=== PATIENT | female | born 1990 | race American Indian/Alaskan Native ===

== ENCOUNTER 2019-05-01 13:22 | Emergency (ER) | payer SELFPAY ==
--- NOTE | 2019-05-01 13:30 | Emergency Department Report ---
Blank Doc - Documentation Documentation: 28-year-old female that presents with abd pain, headache, and dizziness. This initial assessment/diagnostic orders/clinical plan/treatment(s) is/are subject to change based on patient's health status, clinical progression and re- assessment by fellow clinical providers in the ED. Further treatment and workup at subsequent clinical providers discretion. Patient/guardians urged not to elope from the ED as their condition may be serious if not clinically assessed and managed. Initial orders include: 1- Patient sent to [facility] for further evaluation and treatment 2- labs 3- UA
[2019-05-01 14:10] LABS: Basophils % (Auto) 0.4 % (0.0-1.8); Eosinophils # (Auto) 0.1 K/mm3 (0.0-0.4); Eosinophils % (Auto) 1.1 % (0.0-4.3); Hematocrit 38.2 % (30.3-42.9); Hemoglobin 12.6 gm/dl (10.1-14.3); Lymphocytes # (Auto) 2.1 K/mm3 (1.2-5.4); Lymphocytes % (Auto) 35.3 % (13.4-35.0); Mean Corpuscular HGB Conc 33 % (30-34); Mean Corpuscular Volume 87 fl (79-97); Monocytes # (Auto) 0.4 K/mm3 (0.0-0.8); Monocytes % (Auto) 7.4 % (0.0-7.3); Platelet Count 334 K/mm3 (140-440); Red Blood Count 4.39 M/mm3 (3.65-5.03); Red Cell Distribution Width 14.3 % (13.2-15.2)
[2019-05-01 14:14] LABS: Bilirubin,Urine NEG (Negative); Blood,Urine LG (Negative); Color,Urine Yellow (Yellow); Protein,Urine <15 mg/dL mg/dL (Negative); Urobilinogen,Urine < 2.0 mg/dL (<2.0)
[2019-05-01 14:20] LABS: Alanine Aminotransferase 12 units/L (7-56); Albumin 4.2 g/dL (3.9-5); BUN/Creatinine Ratio 12; Blood Urea Nitrogen 12 mg/dL (7-17); Calcium 9.2 mg/dL (8.4-10.2); Hemolysis Index 8
--- NOTE | 2019-05-01 16:13 | Emergency Department Report ---
ED Abdominal Pain HPI - General Chief Complaint: Abdominal Pain Stated Complaint: SOB/ABD PAIN/HEADACHE/DIZZY Time Seen by Provider: 05/01/19 13:29 Source: patient Mode of arrival: Ambulatory Limitations: No Limitations - History of Present Illness Initial Comments: Patient complained of pelvic pain which has been ongoing for the past 2 days. She also said she is having vaginal spotting and test Was Positive. -: days(s) (two) Radiation: none Migration to: no migration Severity: mild Severity scale (0 -10): 3 Quality: aching, dull Consistency: constant Improves With: nothing Worsens With: nothing Associated Symptoms: other (Headache) - Related Data LMP (females 10-50): Previous Rx's Medication Instructions Recorded Last Taken Type Doxycycline Hyclate [Doxycycline 100 mg PO Q12HR #28 tab 05/01/19 Unknown Rx Hyclate TAB] Ibuprofen [Motrin] 800 mg PO Q8HR PRN #25 tablet 05/01/19 Unknown Rx Ondansetron [Zofran Odt] 4 mg PO Q8HR PRN #25 tab.rapdis 05/01/19 Unknown Rx metroNIDAZOLE [Flagyl] 500 mg PO Q12HR #28 tab 05/01/19 Unknown Rx Allergies Allergy/AdvReac Type Severity Reaction Status Date / Time No Known Allergies Allergy Unverified 05/01/19 13:23 ED Review of Systems ROS: Stated complaint: SOB/ABD PAIN/HEADACHE/DIZZY Other details as noted in HPI Comment: All other systems reviewed and negative Constitutional: denies: chills, fever Eyes: denies: eye pain, eye discharge, vision change ENT: denies: ear pain, throat pain Respiratory: denies: cough, shortness of breath, wheezing Cardiovascular: denies: chest pain, palpitations Endocrine: no symptoms reported Gastrointestinal: abdominal pain, other (Lower Abdominal/Pelvic Pain.). denies: nausea, diarrhea Genitourinary: denies: urgency, dysuria, discharge Musculoskeletal: denies: back pain, joint swelling, arthralgia Skin: denies: rash, lesions Neurological: denies: headache, weakness, paresthesias Psychiatric: denies: anxiety, depression Hematological/Lymphatic: denies: easy bleeding, easy bruising ED Past Medical Hx - Past Medical History Previous Medical History?: Yes Hx Sickle Cell Disease: (trait) - Surgical History Past Surgical History?: No - Social History Smoking Status: Never Smoker Substance Use Type: Marijuana - Medications Home Medications: Home Medications Medication Instructions Recorded Confirmed Last Taken Type Doxycycline Hyclate [Doxycycline 100 mg PO Q12HR #28 tab 05/01/19 Unknown Rx Hyclate TAB] Ibuprofen [Motrin] 800 mg PO Q8HR PRN #25 tablet 05/01/19 Unknown Rx Ondansetron [Zofran Odt] 4 mg PO Q8HR PRN #25 tab.rapdis 05/01/19 Unknown Rx metroNIDAZOLE [Flagyl] 500 mg PO Q12HR #28 tab 05/01/19 Unknown Rx ED Physical Exam - General Limitations: No Limitations General appearance: alert, in no apparent distress - Head Head exam: Present: atraumatic, normocephalic - Eye Eye exam: Present: normal appearance, PERRL Pupils: Present: normal accommodation - ENT ENT exam: Present: normal exam, normal orophraynx, mucous membranes moist - Neck Neck exam: Present: normal inspection - Respiratory Respiratory exam: Present: normal lung sounds bilaterally. Absent: respiratory distress - Cardiovascular Cardiovascular Exam: Present: regular rate, normal rhythm. Absent: systolic murmur, diastolic murmur, rubs, gallop - GI/Abdominal GI/Abdominal exam: Present: soft, normal bowel sounds - Rectal Rectal exam: Present: deferred - External exam: Present: normal external exam. Absent: erythema, swelling, lesions, lacerations, bleeding Speculum exam: Present: normal speculum exam, vaginal discharge. Absent: vaginal bleeding, foreign body, tissue, laceration Bi-manual exam: Present: normal bi-manual exam, cervical motion tendernes, adnexal tenderness, uterine tenderness, other (Fabi was Ms. Kristy RN.). Absent: adnexal mass, uterine enlargement - Extremities Exam Extremities exam: Present: normal inspection, full ROM, normal capillary refill - Back Exam Back exam: Present: normal inspection - Neurological Exam Neurological exam: Present: alert, oriented X3, CN II-XII intact - Psychiatric Psychiatric exam: Present: normal affect, normal mood - Skin Skin exam: Present: warm, dry, intact, normal color. Absent: rash ED Course Vital Signs 05/01/19 13:29 Temperature 98.5 F Pulse Rate 92 H Respiratory 18 Rate Blood Pressure 113/66 O2 Sat by Pulse 100 Oximetry - Reevaluation(s) Reevaluation #1: 05/01/19 20:36 Patient is feeling much better and wants to be discharged home. ED Medical Decision Making - Lab Data Result diagrams: 05/01/19 13:38 05/01/19 13:38 Lab Results 05/01/19 05/01/19 05/01/19 Range/Units 13:38 13:38 13:38 WBC 6.1 (4.5-11.0) K/mm3 RBC 4.39 (3.65-5.03) M/mm3 Hgb 12.6 (10.1-14.3) gm/dl Hct 38.2 (30.3-42.9) % MCV 87 (79-97) fl MCH 29 (28-32) pg MCHC 33 (30-34) % RDW 14.3 (13.2-15.2) % Plt Count 334 (140-440) K/mm3 Lymph % (Auto) 35.3 H (13.4-35.0) % Faulk % (Auto) 7.4 H (0.0-7.3) % Eos % (Auto) 1.1 (0.0-4.3) % Baso % (Auto) 0.4 (0.0-1.8) % Lymph # 2.1 (1.2-5.4) K/mm3 Faulk # 0.4 (0.0-0.8) K/mm3 Eos # 0.1 (0.0-0.4) K/mm3 Baso # 0.0 (0.0-0.1) K/mm3 Seg Neutrophils % 55.8 (40.0-70.0) % Seg Neutrophils # 3.4 (1.8-7.7) K/mm3 Sodium 136 L (137-145) mmol/L Potassium 3.9 (3.6-5.0) mmol/L Chloride 98.0 (98-107) mmol/L Carbon Dioxide 25 (22-30) mmol/L Anion Gap 17 mmol/L BUN 12 (7-17) mg/dL Creatinine 1.0 (0.7-1.2) mg/dL Estimated GFR > 60 ml/min BUN/Creatinine Ratio 12 % Glucose 89 (65-100) mg/dL Calcium 9.2 (8.4-10.2) mg/dL Total Bilirubin 0.20 (0.1-1.2) mg/dL AST 16 (5-40) units/L ALT 12 (7-56) units/L Alkaline Phosphatase 67 (35-129) units/L Total Protein 8.0 (6.3-8.2) g/dL Albumin 4.2 (3.9-5) g/dL Albumin/Globulin Ratio 1.1 % Lipase 43 (13-60) units/L HCG, Qual Negative (Negative) HCG, Quant (0-4) mIU/mL Urine Color (Yellow) Urine Turbidity (Clear) Urine pH (5.0-7.0) Ur Specific [place] (1.003-1.030) Urine Protein (Negative) mg/dL Urine Glucose (UA) (Negative) mg/dL Urine Ketones (Negative) mg/dL Urine Blood (Negative) Urine Nitrite (Negative) Urine Bilirubin (Negative) Urine Urobilinogen (<2.0) mg/dL Ur Leukocyte Esterase (Negative) Urine WBC (Auto) (0.0-6.0) /HPF Urine RBC (Auto) (0.0-6.0) /HPF U Epithel Cells (Auto) (0-13.0) /HPF 05/01/19 05/01/19 05/01/19 Range/Units 15:23 15:23 Unknown WBC (4.5-11.0) K/mm3 RBC (3.65-5.03) M/mm3 Hgb (10.1-14.3) gm/dl Hct (30.3-42.9) % MCV (79-97) fl MCH (28-32) pg MCHC (30-34) % RDW (13.2-15.2) % Plt Count (140-440) K/mm3 Lymph % (Auto) (13.4-35.0) % Faulk % (Auto) (0.0-7.3) % Eos % (Auto) (0.0-4.3) % Baso % (Auto) (0.0-1.8) % Lymph # (1.2-5.4) K/mm3 Faulk # (0.0-0.8) K/mm3 Eos # (0.0-0.4) K/mm3 Baso # (0.0-0.1) K/mm3 Seg Neutrophils % (40.0-70.0) % Seg Neutrophils # (1.8-7.7) K/mm3 Sodium (137-145) mmol/L Potassium (3.6-5.0) mmol/L Chloride (98-107) mmol/L Carbon Dioxide (22-30) mmol/L Anion Gap mmol/L BUN (7-17) mg/dL Creatinine (0.7-1.2) mg/dL Estimated GFR ml/min BUN/Creatinine Ratio % Glucose (65-100) mg/dL Calcium (8.4-10.2) mg/dL Total Bilirubin (0.1-1.2) mg/dL AST (5-40) units/L ALT (7-56) units/L Alkaline Phosphatase (35-129) units/L Total Protein (6.3-8.2) g/dL Albumin (3.9-5) g/dL Albumin/Globulin Ratio % Lipase (13-60) units/L HCG, Qual Negative (Negative) HCG, Quant < 2 (0-4) mIU/mL Urine Color Yellow (Yellow) Urine Turbidity Clear (Clear) Urine pH 6.0 (5.0-7.0) Ur Specific [place] 1.012 (1.003-1.030) Urine Protein <15 mg/dl (Negative) mg/dL Urine Glucose (UA) Neg (Negative) mg/dL Urine Ketones Neg (Negative) mg/dL Urine Blood Lg (Negative) Urine Nitrite Neg (Negative) Urine Bilirubin Neg (Negative) Urine Urobilinogen < 2.0 (<2.0) mg/dL Ur Leukocyte Esterase Neg (Negative) Urine WBC (Auto) 2.0 (0.0-6.0) /HPF Urine RBC (Auto) 4.0 (0.0-6.0) /HPF U Epithel Cells (Auto) 4.0 (0-13.0) /HPF - Radiology Data Radiology results: report reviewed CT scan of the abdomen and pelvis shows no appendicitis. Please refer to the radiology report for details. Ultrasound of the pelvis showed no torsion. Critical care attestation.: If time is entered above; I have spent that time in minutes in the direct care of this critically ill patient, excluding procedure time. ED Disposition Clinical Impression: PID (acute pelvic inflammatory disease) Abdominal pain Qualifiers: Abdominal location: lower abdomen, unspecified Qualified Code(s): R10.30 - Lower abdominal pain, unspecified Disposition: TO HOME OR SELFCARE Is pt being admited?: No Does the pt Need Aspirin: No Condition: Stable Instructions: Abdominal Pain (ED), Pelvic Inflammatory Disease (ED) Additional Instructions: Please follow up with her primary doctor tomorrow morning. Rectal the emergency room if condition worsens. Prescriptions: Doxycycline Hyclate [Doxycycline Hyclate TAB] 100 mg PO Q12HR #28 tab metroNIDAZOLE [Flagyl] 500 mg PO Q12HR #28 tab Ibuprofen [Motrin] 800 mg PO Q8HR PRN #25 tablet PRN Reason: Pain , Severe (7-10) Ondansetron [Zofran Odt] 4 mg PO Q8HR PRN #25 tab.rapdis PRN Reason: Nausea And Vomiting Referrals: PRIMARY CARE,MD [Primary Care Provider] - 3-5 Days Forms: Work/School Release Form(ED) Time of Disposition: 20:38
--- NOTE | 2019-05-01 17:33 | Ultrasound Report ---
ULTRASOUND PELVIS INDICATION: Pelvic pain. Right-sided pelvic pain TECHNIQUE: Transabdominal. Duplex Color Doppler used: Yes. COMPARISON: None available FINDINGS: Uterus: Present. Size: 7.1 x 5.5 x 5.0 cm. Endometrial complex: Normal measuring 1.2 cm. Mass lesions: None. Additional findings: None. Right Ovary -- Normal. Measures 2.1 x 1.4 x 1.6 cm Blood flow: Normal. Cyst or mass: None. Left Ovary-- Normal. Measures 2.5 x 1.8 x 2.9 cm Blood flow: Normal. Cyst or mass: None. Urinary Bladder: Normal. Free Fluid: Trace free pelvic fluid Additional Findings: None. IMPRESSION: 1. No acute sonographic abnormality of the pelvis. 2. Trace amount of free pelvic fluid likely physiologic. Signer Name: Jeffry Sparks MD Signed: 05/01/2019 5:28 PM Workstation Name: [id number]
[2019-05-01] MEDS ORDERED: LIDOCAINE-MPF (1%) 10 MG/1 ML VIAL 5 ML INFILTRATI ONE (18:03)
[2019-05-01] MEDS ORDERED: metroNIDAZOLE 500 MG TAB PO ONE (18:04)
[2019-05-01] MEDS ORDERED: AZITHROMYCIN 250 MG TAB PO ONE (18:04)
[2019-05-01] MEDS ORDERED: ONDANSETRON 4 MG/2 ML INJ IV ONE (18:05)
--- NOTE | 2019-05-01 20:24 | Cat Scan Report ---
CT ABDOMEN AND PELVIS WITH CONTRAST INDICATION: lower abdominal pain. TECHNIQUE: Axial CT images were obtained through the abdomen and pelvis after 100 cc Omnipaque [address] scans at this location are performed using CT dose reduction for ALARA by means of automated exposure control. COMPARISON: Pelvic ultrasound performed today FINDINGS: LOWER CHEST: No significant abnormality. Bilateral breast implants. LIVER: No significant abnormality. GALLBLADDER: No significant abnormality. BILE DUCTS: No significant abnormality. PANCREAS: No significant abnormality. SPLEEN: No significant abnormality. ADRENALS: No significant abnormality. RIGHT KIDNEY and URETER: Simple 1 cm right renal cyst. No significant abnormality. LEFT KIDNEY and URETER: No significant abnormality. STOMACH and SMALL BOWEL: Nondilated fluid-filled loops of small bowel is nonspecific but may be seen with gastroenteritis COLON: No significant abnormality. Mild sigmoid diverticulosis. APPENDIX: Normal. PERITONEUM: No free fluid. No free air. No fluid collection. LYMPH NODES: No significant adenopathy. AORTA and ARTERIES: No significant abnormality. IVC and VEINS: No significant abnormality. URINARY BLADDER: No significant abnormality. REPRODUCTIVE ORGANS: 1.3 cm left corpus luteal cyst with trace amount of free pelvic fluid. ADDITIONAL FINDINGS: None. SKELETAL SYSTEM: No significant abnormality. IMPRESSION: 1. Possible gastroenteritis with fluid-filled nondilated loops of small bowel. 2. 1.3 cm left ovarian corpus luteal cyst with trace amount of free pelvic fluid 3. No CT evidence for appendicitis. Signer Name: Jeffry Sparks MD Signed: 05/01/2019 8:19 PM Workstation Name: [id number]
[2019-05-01 20:52] VITALS: BP 110/73
== END 2019-05-01 20:53 | disposition home or self-care (01) ==
LOC: ED 13:22
DX: N73.9 Female pelvic inflammatory disease, unspecified (principal); F12.10 Cannabis abuse, uncomplicated; Z79.899 Other long term (current) drug therapy
CPT/HCPCS: 36415; 74177; 80053; 81001; 83690; 84702; 84703; 85025; 87210; 87591; 93975; 96372; 96374; 99284; J0696; J2405; Q9967